=== PATIENT | female | born 1960 | race Caucasian/White ===

== ENCOUNTER → 2017-04-24 | Outpatient (CLI) | payer MEDICARE, BC ==
[~2017-04-24] MED LIST: BYSTOLIC10 MG PO; DICLOFENAC 50MG50 MG PO; HYDROCODONE-APA1 TAB PO; LEVOTHYROXIN0.075 M1 PO; LEVOTHYROXINE0.1 MG PO; LISINOPRIL 20MG20 MG PO; NEURONTIN 100100 MG PO; RELAFEN 750MG750 MG PO; TORADOL10 M1 PO
--- NOTE | 2017-04-29 14:59 | RADIOLOGY REPORT PS360 ---
DIG MAMM-SCREEN DONNA W/CAD CAD Screening COMPARISON: Digital mammograms 11/09/2014 and 04/19/2016 INDICATION: There is no personal or family history of breast cancer. TECHNIQUE: Standard CC and MLO images were obtained. R2 CAD reviewed. FINDINGS: The breasts are composed primarily of fat with minimal scattered fibroglandular densities in the subareolar regions of each breast. There is no suspicious lesion and there are no suspicious microcalcifications. IMPRESSION: Fibrofatty parenchyma with no suspicious lesion seen recommend yearly follow-up BI-RADS CATEGORY: 1_Negative RECOMMENDED FOLLOWUP: 12M 12 MONTH FOLLOW-UP (A letter has been sent to the patient regarding results of the study.)
== END ==
LOC: RAD 08:55
DX: Z12.31 Encounter for screening mammogram for malignant neoplasm of breast (principal)
CPT/HCPCS: G0202